=== PATIENT | female | born 1980 | race Caucasian/White ===

== ENCOUNTER 2019-08-01 20:05 | Inpatient (IN) ==
[2019-08-01 21:04] LABS: Basophils # (auto) 0.03 K/uL (0-0.2); Basophils % (auto) 0.2 %; Eosinophils # (auto) 0.39 K/uL (0-0.5); Eosinophils % (auto) 3.2 %; Hematocrit (blood only) 42.5 % (37-47); Immature Granulocytes # (auto) 0.02 K/uL (0.00-0.02); Immature Granulocytes % (auto) 0.2 %; Lymphocytes # (auto) 3.97 K/uL (1.2-3.4); Lymphocytes % (auto) 32.6 %; Mean Corpuscular Hemoglobin 31.5 pg (25-34); Mean Corpuscular Hgb Conc 35.3 g/dL (32-36); Mean Corpuscular Volume 89.3 fL (80-100); Mean Platelet Volume 10.5 fL (7.4-10.4); Monocytes % (auto) 6.6 %; Neutrophils # (auto) 6.98 K/uL (1.4-6.5); Neutrophils % (auto) 57.2 %; Platelet Count 275 K/uL (130-400); RDW Coefficient of Variation 12.9 % (11.5-14.5); RDW Standard Deviation 42.2 fL (36.4-46.3); Red Blood Count 4.76 M/uL (4.2-5.4); White Blood Count 12.19 K/uL (4.8-10.8)
[2019-08-01 21:22] LABS: Albumin Level 3.8 gm/dl (3.4-5.0); BUN Creatinine Ratio 11.4 (10-20); Calcium 9.5 mg/dl (8.5-10.1); Creatinine Clr Calc Pharmacy 166.7 ml/min; Est GFR (Non-African American) 111.3; Potassium 3.8 mmol/L (3.5-5.1)
[2019-08-01 21:25] LABS: Albumin Globulin Ratio 0.9 (0.9-2); Bilirubin,Total 0.3 mg/dl (0.2-1); Globulin 4.5 gm/dl (2.5-4.0); Total Protein 8.3 gm/dl (6.4-8.2)
[2019-08-01 21:39] LABS: Appearance Urine Clear (Clear); Bacteria Urine Automated Negative (Negative); Bilirubin Urine Negative (Negative); Blood Urine Negative (Negative); Color Urine Yellow; Glucose Urine UA Negative (Negative); Ketones Urine Negative (Negative); Leukocyte Esterase Urine Negative (Negative); Nitrite Urine Negative (Negative); Protein Urine 1+ (Negative); RBC Urine Automated 0-4 /hpf (0-4); Specific Gravity Urine 1.015 (1.000-1.030); Urobilinogen Urine Negative (Negative); pH Urine 5.5 (4.5-7.5)
[2019-08-01] MEDS ORDERED: MoRPHine SULFATE 4 MG/ML 1 ML CARP\\VIAL IV STA (21:58)
[2019-08-01 22:54] LABS: Partial Thromboplastin Time 27.1 Seconds (21.0-31.0); Prothrombin Time 10.2 Seconds (9.0-12.0)
[2019-08-01] MEDS ORDERED: HEPARIN SOD (PORCINE) 1000 UNIT/ML 10 ML VIAL ONE (22:54)
[2019-08-01] MEDS: HEPARIN SODIUM/DEXTROSE 25,000 UNITS/500 ML BAG IV SCH (23:00)
--- NOTE | 2019-08-02 00:18 | Emergency Department Note ---
Entered by Breanna King acting as a scribe for Pawan Shay DO History of Present Illness General Chief complaint: Infection, Wound Stated complaint: WOUND PAIN Source: patient History of Present Illness Provider complaint: wound infection Onset (ago): day(s) 2 Location: upper extremity and right Pain Consistency: + other (worsening) Maximum Pain Intensity: 7 Relieved By: + none Associated symptoms: + other (-diarrhea, -pain/burning during urination, +numbness and tingling); no fever/chills, no nausea/vomiting and no weakness The patient is a 39 year old female who presents to the Emergency Room with complaints of worsening wound infection of her right upper extremity that began 2 days ago. The patient reports that she has been experiencing tingling and numbness in her right forearm for the past 3 months. She notes that her symptoms worsened 2 days ago. She reports that there was been development of discoloration, bruises, and wounds on her forearm. She notes that she saw her PCP where they placed her on Naproxen for a blood clot. She denies any nausea, vomiting, fever, chills, diarrhea, weakness, pain or burning during urination. She notes that she has a history for IV drug use and smoking tobacco. She denies being on blood thinners. No other exacerbating or remitting factors. Home Medications Home Medications Medication Instructions Recorded Confirmed Type buprenorphine HCl 16 mg SUBLINGUAL DAILY 08/01/19 08/01/19 History clopidogrel 75 mg PO DAILY 08/01/19 08/01/19 History Allergies Allergy/AdvReac Type Severity Reaction Status Date / Time No Known Allergies Allergy Verified 08/01/19 21:52 Past Med/Surg History Medical History No significant medical problems Social History Preferred Language: Nepali Feels Safe at Home: Yes Smoking Status: Current every day smoker Review of Systems See HPI for pertinent positives & negatives. and A total of 10 systems reviewed and were otherwise negative Physical Exam Vital Signs Vital Signs - 24 hr 08/01/19 20:14 08/01/19 22:00 08/01/19 23:09 Temperature 37.0 C Temperature Source Oral Pulse Rate 101 H Pulse Rate [Left Finger] 88 Pulse Rhythm [Left Finger] Pulse Strength [Left Finger] Respiratory Rate 16 22 Respiratory Effort / Characteristics Non-Labored Spontaneous Respiratory Depth Normal Respiratory Pattern Regular Blood Pressure 180/94 H Blood Pressure [Left Arm] 153/89 H Blood Pressure Mean 122 Blood Pressure Mean [Left Arm] 110 Blood Pressure Position Sitting Pulse Oximetry 97 98 95 Oxygen Delivery Method Room Air Room Air Room Air Sepsis Recent Fever Within 48 Hours No Sepsis Action Taken by Nursing No Action Required 08/01/19 23:10 Temperature Temperature Source Pulse Rate Pulse Rate [Left Finger] 82 Pulse Rhythm [Left Finger] Regular Pulse Strength [Left Finger] Normal Respiratory Rate 18 Respiratory Effort / Characteristics Non-Labored Respiratory Depth Normal Respiratory Pattern Blood Pressure Blood Pressure [Left Arm] 153/89 H Blood Pressure Mean Blood Pressure Mean [Left Arm] 110 Blood Pressure Position Pulse Oximetry 95 Oxygen Delivery Method Room Air Sepsis Recent Fever Within 48 Hours Sepsis Action Taken by Nursing GENERAL: alert, well nourished, moderate distress, non-toxic, holding right forearm EYE EXAM: normal conjunctiva, PERRL and EOM's grossly intact OROPHARYNX: no exudate, no erythema, lips, buccal mucosa, and tongue normal and mucous membranes are moist NECK: supple, no nuchal rigidity, no adenopathy, non-tender LUNGS: Clear to auscultation. Normal chest wall mechanics HEART: no murmurs, S1 normal and S2 normal ABDOMEN: abdomen soft, non-tender, normo-active bowel sounds, no masses, no rebound or guarding. BACK: Back is symmetrical on inspection and there is no deformity, no midline tenderness, no CVA tenderness. SKIN: no rashes and no bruising UPPER EXTREMITIES: radial pulse 2/4 bilateral. significant pain with extension of right wrist, pronation, and supination. 1 cm by 0.5 cm wound left proximal forearm, 6 cm by 2.5 wound left distal forearm. LOWER EXTREMITIES: No pitting edema. NEURO EXAM: Normal sensorium, cranial nerves II-XII grossly intact, normal speech, no gross weakness of arms, no gross weakness of legs. Course Course ED COURSE: Vital signs were reviewed and showed hypertensive The patients medical record was reviewed The above diagnostic studies were performed and reviewed. ED treatments and interventions as stated above. 2024: The patient was evaluated in room B12B. A complete history and physical examination was performed. 2142: I discussed the patient's case with Dr. Perdomo- [facility] Vascular Surgery, he recommends that the patient come in to be further evaluated. 2149: I discussed the patient's case with Dr. Flores- Hospitalist Octavio, he will further evaluate the patient. 2144: Upon reevaluation, the patient is resting comfortably. I discussed my findings with the patient and she understands and agrees with the treatment plan. Based on the patients age, coexisting illnesses, exam and lab findings the decision to treat as an inpatient was made. The patient remained stable while under my care. The patient will be evaluated for further management. Administered Medications Heparin Sodium/Dextrose (Heparin Sodium/Dextrose) 25,000 units in 500 mls @ 33 mls/hr IV .[id number] [facility]; Protocol Stop: 08/31/19 21:44 Last Admin: 08/01/19 23:00 Dose: 1,650 units/hr, 33 mls/hr Documented by: [id number] Cosigned by: [id number] Discontinued Medications Heparin Sodium (Porcine) (Heparin Iv Bolus) Confirm Administered Dose 10,000 units .ROUTE .Faveeo-MED ONE Stop: 08/01/19 22:55 Last Admin: 08/01/19 22:58 Dose: 5,000 units Documented by: [id number] Cosigned by: [id number] Morphine Sulfate (Morphine Sulfate) 4 mg IV NOW STA Stop: 08/01/19 21:59 Last Admin: 08/01/19 22:37 Dose: 4 mg Documented by: [id number] Critical Care Time Critical Care Time: Yes Total Critical Care Time: 32 I have personally spent 32 minutes of critical care time in the direct management of this patient. This includes bedside care, interpretation of diagnostic studies, and testing, discussion with consultants, patient, and family members, and other required patient management activities. This 32 minutes is in excess of all separately billable procedures. Medical Decision Making Differential Diagnosis Differential diagnosis: Etiologies such as DVT, musculoskeletal, infection, joint effusion, trauma, lymphedema, idiopathic, CHF, atrial occulsion, as well as others were entertained Medical Records Attestation: I reviewed the patient's medical records. Home Medications Current Medication List: was personally reviewed by me Laboratory Data Attestation: I reviewed the patient's lab results. Result diagrams: 08/01/19 20:52 08/01/19 20:52 Lab Results 08/01/19 08/01/1920 Range/Units 20:52 20:52 21:24 WBC 12.19 H (4.8-10.8) K/uL RBC 4.76 (4.2-5.4) M/uL Hgb 15.0 (12.0-16.0) g/dL Hct 42.5 (37-47) % MCV 89.3 (80-100) fL MCH 31.5 (25-34) pg MCHC 35.3 (32-36) g/dL RDW Std Deviation 42.2 (36.4-46.3) fL RDW Coeff of Damian 12.9 (11.5-14.5) % Plt Count 275 (130-400) K/uL MPV 10.5 H (7.4-10.4) fL Immature Gran % (Auto) 0.2 % Neut % (Auto) 57.2 % Lymph % (Auto) 32.6 % Valley % (Auto) 6.6 % Eos % (Auto) 3.2 % Baso % (Auto) 0.2 % Immature Gran # (Auto) 0.02 (0.00-0.02) K/uL Neut # (Auto) 6.98 H (1.4-6.5) K/uL Lymph # (Auto) 3.97 H (1.2-3.4) K/uL Valley # (Auto) 0.80 H (0.11-0.59) K/uL Eos # (Auto) 0.39 (0-0.5) K/uL Baso # (Auto) 0.03 (0-0.2) K/uL PT (9.0-12.0) Seconds INR (0.9-1.1) APTT (21.0-31.0) Seconds PTT Ratio Sodium 137 (136-145) mmol/L Potassium 3.8 (3.5-5.1) mmol/L Chloride 105 (98-107) mmol/L Carbon Dioxide 27 (21-32) mmol/L Anion Gap 5.0 (3-11) BUN 8 (7-18) mg/dl Creatinine 0.66 (0.6-1.2) mg/dl Est Cr Clr Drug Dosing 166.7 ml/min Est GFR ( Amer) 129.0 Est GFR (Non-Af Amer) 111.3 BUN/Creatinine Ratio 11.4 (10-20) Glucose 105 H (70-99) mg/dl Calcium 9.5 (8.5-10.1) mg/dl Total Bilirubin 0.3 (0.2-1) mg/dl AST 35 (15-37) U/L ALT 31 (12-78) U/L Alkaline Phosphatase 88 (45-117) U/L Total Protein 8.3 H (6.4-8.2) gm/dl Albumin 3.8 (3.4-5.0) gm/dl Globulin 4.5 H (2.5-4.0) gm/dl Albumin/Globulin Ratio 0.9 (0.9-2) Lipase 61 L (73-393) U/L Urine Color Urine Appearance (Clear) Urine pH (4.5-7.5) Ur Specific Matheson (1.000-1.030) Urine Protein (Negative) Urine Glucose (UA) (Negative) Urine Ketones (Negative) Urine Blood (Negative) Urine Nitrite (Negative) Urine Bilirubin (Negative) Urine Urobilinogen (Negative) Ur Leukocyte Esterase (Negative) Urine WBC (Auto) (0-5) /hpf Urine RBC (Auto) (0-4) /hpf U Hyaline Cast (Auto) (0-5) /lpf U Epithel Cells (Auto) (0-5) /lpf Urine Bacteria (Auto) (Negative) POC Ur Test NEG (NEG) 08/01/19 08/01/19 Range/Units 21:24 22:25 WBC (4.8-10.8) K/uL RBC (4.2-5.4) M/uL Hgb (12.0-16.0) g/dL Hct (37-47) % MCV (80-100) fL MCH (25-34) pg MCHC (32-36) g/dL RDW Std Deviation (36.4-46.3) fL RDW Coeff of Damian (11.5-14.5) % Plt Count (130-400) K/uL MPV (7.4-10.4) fL Immature Gran % (Auto) % Neut % (Auto) % Lymph % (Auto) % Valley % (Auto) % Eos % (Auto) % Baso % (Auto) % Immature Gran # (Auto) (0.00-0.02) K/uL Neut # (Auto) (1.4-6.5) K/uL Lymph # (Auto) (1.2-3.4) K/uL Valley # (Auto) (0.11-0.59) K/uL Eos # (Auto) (0-0.5) K/uL Baso # (Auto) (0-0.2) K/uL PT 10.2 (9.0-12.0) Seconds INR 1.0 (0.9-1.1) APTT 27.1 (21.0-31.0) Seconds PTT Ratio 1.0 Sodium (136-145) mmol/L Potassium (3.5-5.1) mmol/L Chloride (98-107) mmol/L Carbon Dioxide (21-32) mmol/L Anion Gap (3-11) BUN (7-18) mg/dl Creatinine (0.6-1.2) mg/dl Est Cr Clr Drug Dosing ml/min Est GFR ( Amer) Est GFR (Non-Af Amer) BUN/Creatinine Ratio (10-20) Glucose (70-99) mg/dl Calcium (8.5-10.1) mg/dl Total Bilirubin (0.2-1) mg/dl AST (15-37) U/L ALT (12-78) U/L Alkaline Phosphatase (45-117) U/L Total Protein (6.4-8.2) gm/dl Albumin (3.4-5.0) gm/dl Globulin (2.5-4.0) gm/dl Albumin/Globulin Ratio (0.9-2) Lipase (73-393) U/L Urine Color Yellow Urine Appearance Clear (Clear) Urine pH 5.5 (4.5-7.5) Ur Specific Matheson 1.015 (1.000-1.030) Urine Protein 1+ H (Negative) Urine Glucose (UA) Negative (Negative) Urine Ketones Negative (Negative) Urine Blood Negative (Negative) Urine Nitrite Negative (Negative) Urine Bilirubin Negative (Negative) Urine Urobilinogen Negative (Negative) Ur Leukocyte Esterase Negative (Negative) Urine WBC (Auto) 1-5 (0-5) /hpf Urine RBC (Auto) 0-4 (0-4) /hpf U Hyaline Cast (Auto) 1-5 (0-5) /lpf U Epithel Cells (Auto) 10-20 H (0-5) /lpf Urine Bacteria (Auto) Negative (Negative) POC Ur Test (NEG) Blood Pressure Blood Pressure Findings: Elevated blood pressure Blood Pressure Disposition: further management by hospitalist MDM Narrative Patient is a 39-year-old female previous IV drug abuser that presents the ER referred in following have an ultrasound performed by the PCP as an outpatient and having 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 She notes her pain has significantly worsened in the right forearm. Her strength is intact. Radial pulses intact. She does he have nonhealing wounds over the past 2 months which I do favor secondary to the poor circulation. Venous Doppler was negative. Labs show a mild leukocytosis 12,000. No significant anemia. INR unremarkable. BMP along with LFTs bilirubin lipase was unremarkable. UA was negative. was negative. Case was discussed with Dr. Perdomo. He recommended heparin and admission for angio in the morning. Patient was given a heparin bolus and drip following patient declining any previous brain bleeds, vomiting blood, coughing blood, urinating blood, blood in stool or recent trauma or surgery. Impression & Plan Arterial occlusion, Pain in right arm Discharge Plan Visit Data Chief Complaint: Infection, Wound Stated Complaint: WOUND PAIN ED Provider: Pawan Shay Discharge Problem: Arterial occlusion, Pain in right arm Patient Disposition: Being Evaluated by Hospitalist Forms Stand Alone Forms: My [facility] Prescriptions Prescriptions: No Action clopidogrel 75 mg tablet 75 mg PO DAILY RF: 0 buprenorphine HCl 8 mg tablet, sublingual 16 mg SUBLINGUAL DAILY RF: 0 Referrals Referrals: Breanne Mills DO [Primary Care Provider] - The scribe's documentation has been prepared under my direction and personally reviewed by me in its entirety. I confirm that the note above accurately reflects all work, treatment, procedures, and medical decision making performed by me.
[2019-08-02] MEDS ORDERED: HYDROmorphone INJ 0.5 MG/0.5 ML SYR IV PRN (00:55)
[2019-08-02] MEDS ORDERED: ONDANSETRON INJ 2 MG/ML 2 ML VIAL IV PRN (00:55)
--- NOTE | 2019-08-02 02:13 | History and Physical Report ---
DATE OF ADMISSION: 08/01/2019 CHIEF COMPLAINT: Right upper extremity pain and right brachial artery stenosis. HISTORY OF PRESENT ILLNESS: This is a 39-year-old female with past medical history significant for hepatitis C, history of depression and anxiety, posttraumatic stress disorder, tobacco use disorder, history of heroin use, thyromegaly, presents with right brachial artery stenosis. The patient was having right upper extremity pain for last 3 months, she was initially checked for blood clots. She had a venous Doppler done on 07/18/19 showed superficial thrombophlebitis of the right upper extremity noted in the basilic vein and then a couple of weeks ago, she also noticed a skin tear, skin wounds and bruises seen on the right upper extremity and as symptoms are not improving she has another Doppler of the right upper extremity today which was unremarkable.But there was some brachial artery lesion, so arterial ultrasound was done which showed about 70% blockage and she came to the ER. ER physician talked to vascular surgeon and advised for IV heparin and plan for angiogram in a.m. Currently resting comfortably and hemodynamically stable except for the pain in the right upper extremity. Denies any other complaints. Denies any headache, no dizziness, no blurred vision, no earache, no runny nose, no sore throat, no difficulty swallowing, no chest pain or shortness of breath. No cough, no fever, no chills, no nausea, no vomiting, no abdominal pain. Normal bowel and bladder movements. No diarrhea, no melena or hematochezia. No burning micturition, no hematuria. No swelling in the legs, no rash. ALLERGIES: No known drug allergies. PAST MEDICAL HISTORY: As mentioned above. PAST SURGICAL HISTORY: Dental surgery, dilatation and curettage. MEDICATIONS: Currently Plavix 75 mg p.o. daily and buprenorphine 16 mg daily. FAMILY HISTORY: Significant for mother at age of 30 from overdose. Sister at age of 34 from overdose. Mother had ovarian cancer. Paternal grandfather has diabetes. Maternal grandmother has ovarian cancer. SOCIAL HISTORY: Lives with a partner and child. Smoked a pack a day for 7 years. No alcohol use. Drugs not currently, but history of IV heroin use. REVIEW OF SYMPTOMS: As per HPI. Rest of review of symptoms negative. PHYSICAL EXAMINATION: GENERAL: The patient is obese, not in acute distress. VITAL SIGNS: Temperature 37, pulse 82, respiratory rate 18, blood pressure 153/89, oxygen 95% on room air. HEENT: No pallor, no icterus. Pupils equal, round, and reactive to light. NECK: No JVD, no neck masses, no carotid bruits. CARDIOVASCULAR: S1, S2 heard, regular rate and rhythm, no murmur, no gallop. RESPIRATORY SYSTEM: Normal AP diameter. No accessory muscle use. No wheezing, no crackles. ABDOMEN: Soft, bowel sounds present, nontender, nondistended. CENTRAL NERVOUS SYSTEM: Cranial nerves II-XII grossly intact. Nonfocal. EXTREMITIES: Right upper extremity bruises seen and skin lesions seen in the right forearm close to the wrist on the posterior aspect. LABORATORY DATA: WBC 12.1, hemoglobin 15, hematocrit 42.5, platelets 275. PT 10.2, INR 1, APTT 27.1. Sodium 137, potassium 3.8, chloride 105, bicarbonate 27, BUN 8, creatinine 0.6, serum glucose 105, calcium 9.4, total bilirubin 0.3, AST 35, ALT 31, alkaline phosphatase 88, lipase 61. Urinalysis negative. ASSESSMENT AND PLAN: This is a 39-year-old female who presents with right brachial artery stenosis. 1. Right brachial artery stenosis: She has been having pain on the right upper extremity for the last 3 months and some skin lesions since last 2 weeks and she is status post Doppler study done on July 15 which showed thrombophlebitis in basilic vein and symptoms are not improving another venous ultrasound was done today which did not show any deep venous thrombosis, but questionable lesion in brachial artery.Arterial ultrasound showed 70% brachial stenosis. Vascular Surgery was notified by the ER. Advised for IV heparin plan for angiogram in a.m. Will keep n.p.o. after midnight. 2. History of drug abuse in the past. Currently on buprenorphine. 3. History of hepatitis C: Needs followup. 4. Deep venous thrombosis prophylaxis: IV heparin. DISPOSITION: Admit to medical floor. Expect discharge home and follow with family doctor. Level 1 full code. MTDD
[2019-08-02 05:26] LABS: Basophils # (auto) 0.02 K/uL (0-0.2); Basophils % (auto) 0.2 %; Eosinophils # (auto) 0.42 K/uL (0-0.5); Eosinophils % (auto) 4.4 %; Hematocrit (blood only) 40.6 % (37-47); Hemoglobin 13.8 g/dL (12.0-16.0); Immature Granulocytes # (auto) 0.01 K/uL (0.00-0.02); Immature Granulocytes % (auto) 0.1 %; Lymphocytes # (auto) 3.64 K/uL (1.2-3.4); Lymphocytes % (auto) 37.8 %; Mean Corpuscular Hemoglobin 30.5 pg (25-34); Mean Corpuscular Volume 89.6 fL (80-100); Mean Platelet Volume 10.4 fL (7.4-10.4); Monocytes % (auto) 7.3 %; Neutrophils # (auto) 4.83 K/uL (1.4-6.5); Neutrophils % (auto) 50.2 %; Platelet Count 242 K/uL (130-400); RDW Coefficient of Variation 13.1 % (11.5-14.5); RDW Standard Deviation 42.9 fL (36.4-46.3); Red Blood Count 4.53 M/uL (4.2-5.4); White Blood Count 9.62 K/uL (4.8-10.8)
[2019-08-02 05:37] LABS: Partial Thromboplastin Ratio 1.5; Partial Thromboplastin Time 40.4 Seconds (21.0-31.0)
[2019-08-02 05:50] LABS: BUN Creatinine Ratio 11.1 (10-20); Calcium 9.2 mg/dl (8.5-10.1); Est GFR (African American) 140.4; Est GFR (Non-African American) 121.1; Magnesium 1.9 mg/dl (1.8-2.4); Potassium 3.5 mmol/L (3.5-5.1)
[2019-08-02] MEDS ORDERED: HEPARIN IV BOLUS 7,000 UNITS in SYRINGE 0 ML IV ONE (05:50)
[2019-08-02] MEDS ORDERED: buprenorphine HCL 8 MG SUBL SL SCH (09:00)
[2019-08-02] MEDS ORDERED: CLOPIDOGREL BISULFATE 75 MG TAB PO SCH (09:00)
[2019-08-02] MEDS ORDERED: NICOTINE 21 MG/24 HR TDSY TD SCH (09:00)
--- NOTE | 2019-08-02 09:33 | Consultation ---
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 Continues to have good perfusion to R hand and +3 radial pulse. Will obtain CTA RUE for further eval, but no indications for immediate vascular surgical intervention at this time. IF CTA normal, Ok for d/c from vascular standpoint. Pt was seen in conjunction with Dr Perdomo today. Recommend wound clinic eval/ID eval for R forearm rash eval and treatment. Rash is not related to vascular cause. Patient was seen, examined, and chart reviewed. Agree with exam and treatment plan of the Vascular PA. Would be concerned about deep forearm infection and possible compartment syndrome causing her hand weakness. Present on Admission?: Yes History of Present Illness Reason for Consultation: RUE atherosclerosis Attending Physician: Erik Bradley MD History of Present Illness 39 yo f with hx of IVDA, last used in 2010, admitted with RUE severe pain and rash, seen in consultation today for arterial stenosis noted to R brachial artery on US. Pt states she has had pain in RUE for past 2-3 weeks associated with numbness/tingling to forearm. She also noted a skin lesion that appeared to be a reddish bruise. She saw the ED/PCP, who eventually ordered an US which indicated a RUE brachial art stenosis. Pt was admitted for further treatment. States her R forearm "bruise" developed into a very painful rash and has been getting worse. States severe pain in R forearm with any hand/finger movement. Denies MATA, fever, recent illness, chest pain, SOB, abd pain, N/V, claudication, other complaints. Arterial US indicates R brachial art stenosis. 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 No significant medical problems Social History Preferred Language: Sami Communication Ability: Effective Parboiler Required: No Beliefs That Will Affect Care: None marital status: Single Current Living Situation: Significant Other Feels Safe at Home: Yes Smoking Status: Current every day smoker Tobacco Type: cigarettes ; Cigarettes Per Day: 10 ; Do You Dip or Chew Tobacco: No ; Hx Alcohol Use: No Hx Substance Use: No Review of Systems Review of Systems: All systems reviewed & are unremarkable except as noted in HPI & below Physical Exam Constitutional: WD/WN, vitals as above + obese and cooperative; not in distress Eyes: PERRL, conjunctivae normal, anicteric sclerae ENMT: external ear and nose normal, oropharynx normal Ears: no hearing impairment Neck: trachea midline, no thyromegaly Respiratory: normal respiratory effort, lungs clear to auscultation Cardiovascular: RRR, no murmur, no edema Vessels: normal peripheral pulses, femoral pulses present, posterior tibial pulses present, dorsalis pedis pulses present, brachial pulses present, radial pulses present and ulnar pulses present; no carotid bruit Extremities: normal capillary refill Gastrointestinal (Abdomen): normal bowel sounds, soft, nontender, no hepatosplenomegaly Musculoskeletal: no cyanosis or clubbing, extremities motor strength 5/5 (pain R forearm wtih movement) Skin: + rash (R forearm erythematous, exquisitely tender, papules, scaling) and + crusts Neurologic: moves all extremities; no focal motor deficits (except slight weakness right hand which may be due to forearm pain) and not confused Psychiatric: A+Ox3, euthymic affect Results & Data Vital Signs (Past 12 Hours) Vital Signs Temp Pulse Pulse Resp BP BP Pulse Ox 08/02/19 07:30 36.5 C 71 16 134/85 93 08/02/19 01:11 75 18 167/81 H 98 08/02/19 00:41 36.6 C 84 18 151/85 H 97 08/01/19 23:10 82 18 153/89 H 95 08/01/19 23:09 95 08/01/19 22:00 88 22 153/89 H 98
--- NOTE | 2019-08-02 12:10 | Infectious Disease Consult ---
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 doubt herpes, likely traumatic. no abx at this time. ok for d/c from ID standpoint. History of Present Illness Attending Physician: Erik Bradley MD pt admitted after found to have brachial artery stenosis on ultrasound, was admitted, had vascular eval and no OR planned, pt is to follow with vascular surgery at [facility] post d/c. has superficial wound on arm, thought due to be a burn, ID consulted for ? herpetic lesion, no drainage, some pain, improving with local wound care at home. no f/c at home. no bleeding, no abx. no vesicles. Allergies Allergy/AdvReac Type Severity Reaction Status Date / Time No Known Allergies Allergy Verified 08/01/19 21:52 Home Medications Home Medications Medication Instructions Recorded Confirmed Type buprenorphine HCl 16 mg SUBLINGUAL DAILY 08/01/19 08/01/19 History clopidogrel 75 mg PO DAILY 08/01/19 08/01/19 History Patient History Medical History Atherosclerosis of artery of right upper extremity No significant medical problems Social History Preferred Language: Maori Communication Ability: Effective Headline Writer Required: No Beliefs That Will Affect Care: None marital status: Single Current Living Situation: Significant Other Feels Safe at Home: Yes Smoking Status: Current every day smoker Tobacco Type: cigarettes ; Cigarettes Per Day: 10 ; Do You Dip or Chew Tobacco: No ; Hx Alcohol Use: No Hx Substance Use: No Review of Systems 2 Review of Systems: All systems reviewed & are unremarkable except as noted in HPI & below Physical Exam Constitutional: WD/WN, vitals as above Eyes: PERRL, conjunctivae normal, anicteric sclerae ENMT: external ear and nose normal, oropharynx normal Neck: normal visual inspection Respiratory: normal respiratory effort, lungs clear to auscultation Cardiovascular: RRR, no murmur, no edema Gastrointestinal (Abdomen): normal bowel sounds, soft, nontender, no hepatosplenomegaly Musculoskeletal: no cyanosis or clubbing, extremities motor strength 5/5 Skin: no rashes, warm and dry + wound (superficial ulceration, no drainage, no erythema) Psychiatric: A+Ox3, euthymic affect Results & Data Vital Signs (Past 12 Hours) Vital Signs Temp Pulse Pulse Resp BP BP Pulse Ox 08/02/19 07:30 36.5 C 71 16 134/85 93 08/02/19 01:11 75 18 167/81 H 98 08/02/19 00:41 36.6 C 84 18 151/85 H 97 PG Care Time/CCT Total # of Minutes Spent Total Time Spent with Patient: Total time spent is greater than 50% in coordination of care (as documented) at patient's floor/unit and/or counseling patient: Coding Level of Care Code 79140 Inpt Consult Level 4 Diagnoses 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
[2019-08-02 12:49] LABS: Partial Thromboplastin Time 54.3 Seconds (21.0-31.0)
[2019-08-02] MEDS ORDERED: OPTIRAY 320 125ml IV PRN (13:06)
--- NOTE | 2019-08-02 13:32 | CT Scan Report ---
CHEST CTA, AORTA PROTOCOL CT DOSE: 2063.10 mGy.cm HISTORY: right upper extremtiy ischemia TECHNIQUE: Multiaxial CT images of the chest were performed along the intravenous administration of c ontrast to evaluate the aorta. Maximal intensity projection images were also obtained. A dose loweri ng technique was utilized adhering to the principles of ALARA. COMPARISON STUDY: None. FINDINGS: The thoracic aorta is normal and course and caliber with no evidence for dissection. The pr oximal great vessels are patent. The visualized subclavian arteries are also patent. Severely narrowe d/hypoplastic right axillary vein which is only partially imaged on this study. This is better apprec iated on the same date right upper extremity CTA. The main pulmonary arteries are likely patent but a re poorly opacified. The heart is normal in size. No pleural or pericardial effusions. No mediastinal or hilar lymphadenopathy. Normal esophagus. Limited views of the upper abdomen demonstrate a normal liver and spleen. No pneumothorax. Patchy groundglass densities within the right lung posteriorly and within the right lung apex. This is nonspecific but may represent dependent change given the patient 's positioning. A low-grade pneumonitis could also a similar appearance. Mild air trapping within the right upper lobe. The central airways are patent. No suspicious lytic are blastic osseous lesions. IMPRESSION: 1. Normal thoracic aorta and proximal great vessels. 2. Severely narrows/hypoplastic right axillary vein which is only partially imaged on this study. Thi s favors chronic thrombus. 3. Patchy groundglass densities within the right lung posteriorly and at the right lung apex. This is nonspecific but favors dependent change. A low-grade pneumonitis could also have a similar appearanc e. ACT 112: Negative or not required by law. Electronically signed by: Wale Solano M.D. 08/02/2019 1:30 PM
--- NOTE | 2019-08-02 13:33 | Communication Note ---
Date of Service: August 02, 2019 CTA indicated moderate stenosis of R distal brachial artery, however, flow to hand is preserved. Pt without sign of limb ischemia on exam. No indications for vascular surgical intervention at this time. Please call if needed.
--- NOTE | 2019-08-02 13:35 | CT Scan Report ---
CT ANGIOGRAPHY OF THE RIGHT UPPER EXTREMITY CLINICAL HISTORY: Right upper extremity ischemia. COMPARISON STUDY: No previous studies for comparison. TECHNIQUE: Helical axial images of the right upper chest were obtained during arterial phase followin g intravenous injection 120 cc Optiray 320 IV. Sagittal and coronal reconstructed reviewed as well as maximal intensity projections on an independent 3-D workstation. Automated exposure control was util ized for the study. A dose lowering technique was utilized adhering to the principles of ALARA. FINDINGS: No osseous abnormality of the right humerus, radius or ulna is identified. There is no flui d collection within the right upper extremity. There is mild subcutaneous infiltration within the rig ht antecubital fossa. At this level, there is smooth severe short segment stenosis of the right brach ial artery, measuring approximately 2.9 cm in length. No calcified atherosclerotic plaque is noted. N o pseudoaneurysm is identified. The appearance raises the possibility of an age indeterminate vascula r injury with possible intramural hematoma. No dissection flap is identified. The right axillary, rad ial and ulnar arteries are patent. No additional stenoses are identified within the right upper extre mity. Although suboptimally assessed on this CTA exam, the right axillary vein appears diminutive. IMPRESSION: 1. Smooth severe short segment stenosis of the right brachial artery. The etiology for stenosis is in determinate however the appearance favors an age indeterminate vascular injury with possible intramur al hematoma, particularly given overlying minimal infiltration within the right antecubital fossa. No pseudoaneurysm. No dissection flap. Patent right radial and ulnar arteries. 2. Diminutive right axillary vein, possibly occluded. ACT 112: Negative or not required by law. Electronically signed by: Bebeto Doan M.D. 08/02/2019 1:33 PM
[2019-08-02] MEDS: HEPARIN SODIUM/DEXTROSE 25,000 UNITS/500 ML BAG IV SCH (13:47)
--- NOTE | 2019-08-02 17:42 | Hospitalist Progress Note ---
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 Hospitalist did not the that the interpretation of the CT angiography of the right upper extremity does not exc lude blood clots (Smooth severe short segment stenosis of the right brachial artery. The etiology for stenosis is indeterminate however the appearance favors an age indeterminate vascular injury with possible intramural hematoma, particularly given overlying minimal infiltration within the right antecubital fossa. No pseudoaneurysm. No dissection flap. Patent right radial and ulnar arteries. Diminutive right axillary vein, possibly occluded.) We discussed the possibility of going home on clopidogrel but patient noted that the pain and coloration of the right arm improved while being on heparin IV drip. we then discussed oral anticoagulation that is stronger than clopidogrel. Patient agreed to Eliquis. -on my exam of her left arm, there are no apparent signs of limb ischemia. patient has no chest pain. no shortness of breath. breathing on room air. no dizziness. no headache. no abdominal pain. no vomiting -no signs of infection as per Infectious Disease doctor -patient is to be transitioned off IV heparin drip to loading dose of Eliquis and will continue as 10 mg taken orally twice daily for the first 7 days of therapy. 1st dose at 08/02/2019. After 7 days, the dose is 5 mg taken orally twice daily. (stop clopidogrel at home while on Eliquis) -nicotine patch daily to avoid smoking -discharge medication sent electronically to [facility] [address] [place] [address] -patient will be given CD of [facility] imaging of CHEST CTA, and CT angiography of the right upper extremity and seek clinic evaluation at 08/06/2019 3:30 PM Provider Bk Moses MD Department Vascular Surg [facility] Other appointments 08/07/2019 9:00 AM Provider OPAL [place] Department Pulmonary Medicine, [facility] 08/08/2019 9:00 AM Provider Norma Tijerina PA-C Department [facility] 08/21/2019 9:40 AM Provider Norma Tijerina PA-C Department [facility] History of drug abuse in the past -Currently on buprenorphine. -patient denies any recent injectable drug use. 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 Hospitalist did not the that the interpretation of the CT angiography of the right upper extremity does not ex clude blood clots (Smooth severe short segment stenosis of the right brachial artery. The etiology for stenosis is indeterminate however the appearance favors an age indeterminate vascular injury with possible intramural hematoma, particularly given overlying minimal infiltration within the right antecubital fossa. No pseudoaneurysm. No dissection flap. Patent right radial and ulnar arteries. Diminutive right axillary vein, possibly occluded.) We discussed the possibility of going home on clopidogrel but patient noted that the pain and coloration of the right arm improved while being on heparin IV drip. we then discussed oral anticoagulation that is stronger than clopidogrel. Patient agreed to Eliquis. on my exam of her left arm, there are no apparent signs of limb ischemia. patient has no chest pain. no shortness of breath. breathing on room air. no dizziness. no headache. no abdominal pain. no vomiting Review of Systems Review of Systems: All systems reviewed & are unremarkable except as noted in HPI & below Physical Exam Constitutional: comfortable Eyes: PERRL, conjunctivae normal, anicteric sclerae EOM intact bilaterally ENMT: external ear and nose normal, oropharynx normal Neck: normal visual inspection Respiratory: normal respiratory effort, lungs clear to auscultation Cardiovascular: RRR, no murmur, no edema Gastrointestinal (Abdomen): normal bowel sounds, soft, nontender, no hepatosplenomegaly Musculoskeletal: Head/Neck/Chest: normocephalic and head atraumatic Skin: eschar/scab of right arm, no purulent drainage or blood from the area Neurologic: PERRL, EOMI, accommodation nl, no face palsy, no dysarthria CN's II-XI intact bilaterally Psychiatric: A+Ox3, euthymic affect Results & Data ([facility]) Vital Signs (Past 12 Hours) Vital Signs Temp Pulse Resp BP Pulse Ox 08/02/19 15:05 37.1 C 90 16 136/82 96 08/02/19 07:30 36.5 C 71 16 134/85 93
--- NOTE | 2019-08-02 18:06 | Discharge Summary ---
Date of Service August 02, 2019 Admission HPI Per Admitting Provider CHIEF COMPLAINT: Right upper extremity pain and right brachial artery stenosis. HISTORY OF PRESENT ILLNESS: This is a 39-year-old female with past medical history significant for hepatitis C, history of depression and anxiety, posttraumatic stress disorder, tobacco use disorder, history of heroin use, thyromegaly, presents with right brachial artery stenosis. The patient was having right upper extremity pain for last 3 months, she was initially checked for blood clots. She had a venous Doppler done on 07/18/19 showed superficial thrombophlebitis of the right upper extremity noted in the basilic vein and then a couple of weeks ago, she also noticed a skin tear, skin wounds and bruises seen on the right upper extremity and as symptoms are not improving she has another Doppler of the right upper extremity today which was unremarkable.But there was some brachial artery lesion, so arterial ultrasound was done which showed about 70% blockage and she came to the ER. ER physician talked to vascular surgeon and advised for IV heparin and plan for angiogram in a.m. Currently resting comfortably and hemodynamically stable except for the pain in the right upper extremity. Denies any other complaints. Denies any headache, no dizziness, no blurred vision, no earache, no runny nose, no sore throat, no difficulty swallowing, no chest pain or shortness of breath. No cough, no fever, no chills, no nausea, no vomiting, no abdominal pain. Normal bowel and bladder movements. No diarrhea, no melena or hematochezia. No burning micturition, no hematuria. No swelling in the legs, no rash. ALLERGIES: No known drug allergies. PAST MEDICAL HISTORY: As mentioned above. PAST SURGICAL HISTORY: Dental surgery, dilatation and curettage. MEDICATIONS: Currently Plavix 75 mg p.o. daily and buprenorphine 16 mg daily. FAMILY HISTORY: Significant for mother at age of 30 from overdose. Sister at age of 34 from overdose. Mother had ovarian cancer. Paternal grandfather has diabetes. Maternal grandmother has ovarian cancer. SOCIAL HISTORY: Lives with a partner and child. Smoked a pack a day for 7 years. No alcohol use. Drugs not currently, but history of IV heroin use. REVIEW OF SYMPTOMS: As per HPI. Rest of review of symptoms negative. Admission Exam Per Admitting Provider GENERAL: The patient is obese, not in acute distress. VITAL SIGNS: Temperature 37, pulse 82, respiratory rate 18, blood pressure 153/89, oxygen 95% on room air. HEENT: No pallor, no icterus. Pupils equal, round, and reactive to light. NECK: No JVD, no neck masses, no carotid bruits. CARDIOVASCULAR: S1, S2 heard, regular rate and rhythm, no murmur, no gallop. RESPIRATORY SYSTEM: Normal AP diameter. No accessory muscle use. No wheezing, no crackles. ABDOMEN: Soft, bowel sounds present, nontender, nondistended. CENTRAL NERVOUS SYSTEM: Cranial nerves II-XII grossly intact. Nonfocal. EXTREMITIES: Right upper extremity bruises seen and skin lesions seen in the right forearm close to the wrist on the posterior aspect. 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) Discharge Exam Constitutional comfortable Eyes PERRL, conjunctivae normal, anicteric sclerae EOM intact bilaterally ENMT external ear and nose normal, oropharynx normal Neck normal visual inspection Respiratory normal respiratory effort, lungs clear to auscultation Cardiovascular RRR, no murmur, no edema Gastrointestinal (Abdomen) normal bowel sounds, soft, nontender, no hepatosplenomegaly Musculoskeletal Head/Neck/Chest: normocephalic and head atraumatic Skin eschar/scab of right arm, no purulent drainage or blood from the area Neurologic PERRL, EOMI, accommodation nl, no face palsy, no dysarthria CN's II-XI intact bilaterally Psychiatric A+Ox3, euthymic affect Discharge Data Allergies Allergy/AdvReac Type Severity Reaction Status Date / Time No Known Allergies Allergy Verified 08/01/19 21:52 Consultations 08/01/19 21:57 ED Decision to Admit Stat 08/02/19 00:55 Consult Vascular Surgery Routine 08/02/19 10:46 Consult Infectious Diseases Routine 08/02/19 15:23 Burn CD for patient Stat Ordered Studies 08/02/19 08:20 CT angio UE RT w inc wo if don Routine CT angio chest w con Routine Hospital Course (1) Pain in right arm: 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 Hospitalist did not the that the interpretation of the CT angiography of the right upper extremity does not exclude blood clots (Smooth severe short segment stenosis of the right brachial artery. The etiology for stenosis is indeterminate however the appearance favors an age indeterminate vascular injury with possible intramural hematoma, particularly given overlying minimal infiltration within the right antecubital fossa. No pseudoaneurysm. No dissection flap. Patent right radial and ulnar arteries. Diminutive right axillary vein, possibly occluded.) We discussed the possibility of going home on clopidogrel but patient noted that the pain and coloration of the right arm improved while being on heparin IV drip. we then discussed oral anticoagulation that is stronger than clopidogrel. Patient agreed to Eliquis. -on my exam of her left arm, there are no apparent signs of limb ischemia. patient has no chest pain. no shortness of breath. breathing on room air. no dizziness. no headache. no abdominal pain. no vomiting -no signs of infection as per Infectious Disease doctor -patient is to be transitioned off IV heparin drip to loading dose of Eliquis and will continue as 10 mg taken orally twice daily for the first 7 days of therapy. 1st dose at 08/02/2019. After 7 days, the dose is 5 mg taken orally twice daily. (stop clopidogrel at home while on Eliquis) -nicotine patch daily to avoid smoking -discharge medication sent electronically to [facility] [address] [place] [address] -patient will be given CD of [facility] imaging of CHEST CTA, and CT angiography of the right upper extremity and seek clinic evaluation at 08/06/2019 3:30 PM Provider Bk Moses MD Department Vascular Surg [facility] Other appointments 08/07/2019 9:00 AM Provider OPAL [place] Department Pulmonary Medicine, [facility] 08/08/2019 9:00 AM Provider Norma Tijerina PA-C Department [facility] 08/21/2019 9:40 AM Provider Norma Tijerina PA-C Department [facility] History of drug abuse in the past -Currently on buprenorphine. -patient denies any recent injectable drug use. 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) Total Time Total Time Spent Total Time Spent (In Minutes): 40 minutes Total Time Includes: Examination of the Patient, Discharge Planning, Medication Reconciliation and Communication With Other Providers Discharge Plan Discharge Items Patient Disposition: Home - Self-Care Reason For Visit: RIGHT UPPER EXTREMITY PAIN Discharge Diagnosis: Pain in Right arm 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 Hospitalist did not the that the interpretation of the CT angiography of the right upper extremity does not exclude blood clots (Smooth severe short segment stenosis of the right brachial artery. The etiology for stenosis is indeterminate however the appearance favors an age indeterminate vascular injury with possible intramural hematoma, particularly given overlying minimal infiltration within the right antecubital fossa. No pseudoaneurysm. No dissection flap. Patent right radial and ulnar arteries. Diminutive right axillary vein, possibly occluded.) We discussed the possibility of going home on clopidogrel but patient noted that the pain and coloration of the right arm improved while being on heparin IV drip. we then discussed oral anticoagulation that is stronger than clopidogrel. Patient agreed to Eliquis. -on my exam of her left arm, there are no apparent signs of limb ischemia. patient has no chest pain. no shortness of breath. breathing on room air. no dizziness. no headache. no abdominal pain. no vomiting -patient is to be transitioned off IV heparin drip to loading dose of Eliquis and will continue as 10 mg taken orally twice daily for the first 7 days of therapy. 1st dose at 08/02/2019. After 7 days, the dose is 5 mg taken orally twice daily (stop clopidogrel at home while on Eliquis) -nicotine patch daily to avoid smoking -discharge medication sent electronically to [facility] [address] [facility], [place] [address] -patient will be given CD of [facility] imaging of CHEST CTA, and CT angiography of the right upper extremity) and seek clinic evaluation at 08/06/2019 3:30 PM Provider Bk Moses MD Department Vascular Surg [facility] Other appointments 08/07/2019 9:00 AM Provider OPAL [place] Department Pulmonary Medicine, [facility] 08/08/2019 9:00 AM Provider Norma Tijerina PA-C Department [facility] 08/21/2019 9:40 AM Provider Norma Tijerina PA-C Department [facility] Pending Studies at Discharge: No Stand-Alone Forms: [facility], Smoking Cessation Medications and DC Order Prescriptions: New nicotine [Nicoderm CQ] 21 mg/24 hr Patch 24 Hour 21 mg transdermal QAM 28 Days Qty: 28 RF: 0 Eliquis 5 mg tablet 10 mg PO UD 30 Days Qty: 74 RF: 0 Continued buprenorphine HCl 8 mg tablet, sublingual 16 mg SUBLINGUAL DAILY RF: 0 Discontinued clopidogrel 75 mg tablet 75 mg PO DAILY RF: 0 Discharge Orders: Discharge Order (Routine); Ordered 08/02/19 Ordered By: Erik Humphreys/Other Patient Handouts: [employer] Nutrition Protein Foods, Foods Heart Healthy Admission Data Admit Date/Time: 08/01/19 23:53 Attending Provider: Erik Bradley Admit Provider: Austin Flores Primary Care Provider: Breanne Mills Other Providers: Austin Flores ; Min Perdomo ; Chasity Gilmore
[2019-08-02] MEDS ORDERED: APIXABAN 5 MG TABLET PO ONE (19:00)
== END 2019-08-02 19:13 | disposition home or self-care (01) | DRG 300 ==
LOC: ED 20:05 → 3N 23:53